=== PATIENT | male | born 1945 | race Caucasian/White ===

== ENCOUNTER → 2024-07-03 09:57 | Outpatient (REF) | payer MEDICARE, OTHER, SELFPAY | LOC: HWRCS 09:57 | PROVIDERS: ATTENDING PHYSICIAN Internal Medicine Cardiovascular Disease; FAMILY PHYSICIAN Family Medicine Adult Medicine | DX: Z95.0 Presence of cardiac pacemaker (principal); R01.1 Cardiac murmur, unspecified | CPT/HCPCS: 93306 ==

== ENCOUNTER → 2024-07-15 11:33 | Outpatient (REF) | payer MEDICARE, OTHER, SELFPAY | LOC: HWRCS 11:33 | PROVIDERS: ATTENDING PHYSICIAN Internal Medicine Cardiovascular Disease; FAMILY PHYSICIAN Family Medicine Adult Medicine | DX: R31.1 Benign essential microscopic hematuria (principal); Z95.0 Presence of cardiac pacemaker; R93.1 Abnormal findings on diagnostic imaging of heart and coronary circulation | CPT/HCPCS: 78452; 93017; A9500; J2785 ==